=== PATIENT | male | born 1975 | race Caucasian/White ===

== ENCOUNTER 2021-08-13 11:46 | Emergency (ER) | payer OTHER, SELFPAY ==
--- NOTE | ~2021-08-13 | XR_ITS ---
EXAMINATION: XR chest 2V DATE: 08/13/2021 12:25 INDICATION: Left-sided chest pain. TECHNIQUE: Frontal and lateral views of the chest were obtained. COMPARISON: None. FINDINGS: The lung volumes are small. There is mild atelectasis in the lower lung zones. No pleural e ffusion or pneumothorax. Cardiomegaly is noted. IMPRESSION: 1. Small lung volumes with mild atelectasis in the lower lung zones. 2. Cardiomegaly. Reviewed, dictated and finalized at location A.
--- NOTE | 2021-08-13 11:49 | ECG_ITS ---
Measurements Intervals [place] Rate: 87 P: 40 SD: 175 QRS: 7 QRSD: 101 T: 50 QT: 371 QTc: 448 Interpretive Statements SINUS RHYTHM MODERATE VOLTAGE CRITERIA FOR LVH, CONSIDER NORMAL VARIANT [MEETS CRITERIA IN ONE OF: R(aVL), S(V1), R(V5), R(V5/V6)+S(V1)] ABNORMAL ECG NO PREVIOUS ECG AVAILABLE FOR COMPARISON Electronically Signed On 08-14-2021 17:55:30 CDT by Jae Lynch M.D.
[2021-08-13 12:05] VITALS: BP 164/119; PULSE 96; RESP 16; TEMP 36.6; O2SAT 96
[2021-08-13 12:10] LABS: Basophils Absolute Auto 0.1 K/mm3 (0.0-0.1); Basophils Percent Auto 0.6 % (0.2-1.2); Eosinophils Absolute Auto 0.2 K/mm3 (0-0.3); Eosinophils Percent Auto 2.4 % (0-4.4); Hematocrit 45.7 % (42.0-52.0); Hemoglobin 14.4 g/dL (14.0-18.0); Immature Granulocyte Absolute 0.01 K/mm3 (0.00-0.031); Immature Granulocyte Percent A 0.1 % (0-0.5); Lymphocytes Absolute Auto 1.11 K/mm3 (0.9-3.2); Mean Corpuscular HGB Conc 31.5 g/dl (32-36); Mean Corpuscular Hemoglobin 27.5 pg (26-34); Mean Corpuscular Volume 87.4 fl (80-100); Mean Platelet Volume 9.4 fl (7.4-10.4); Monocytes Absolute Auto 0.6 K/mm3 (0.1-0.6); Monocytes Percent Auto 7.4 % (2.6-8.5); Neutrophils Percent Auto 75.5 % (45.5-73.1); Platelet Count Result 321 k/mm3 (150-375); Red Blood Count 5.23 M/mm3 (4.6-6.20); Red Cell Distribution Width 14.9 % (11.5-14.5)
[2021-08-13 12:19] LABS: Prothrombin Time 13.1 Seconds (11.1-14.7)
[2021-08-13 12:20] LABS: Partial Thromboplastin Time 28.2 SECONDS (22.3-36.8)
[2021-08-13 12:22] LABS: Alanine Aminotransferase 35 U/L (4-50); Albumin Level 4.4 g/dL (3.5-5.1); Alkaline Phosphatase 71 U/L (38-126); Anion Gap 6 mmol/L (8-16); Aspartate Amino Transferase 35 U/L (17-59); Bilirubin,Total 0.4 mg/dL (0.2-1.3); Blood Urea Nitrogen 16 mg/dL (9-20); Calcium 8.7 mg/dL (8.4-10.2); Carbon Dioxide 29 mmol/L (22-30); Chloride 102 mmol/L (98-107); Estimated CRCL calculation 145 ml/min; Estimated Glomerular Filt Rate > 60; Glucose 134 mg/dL (65-110); Lipase 89 U/L (23-300); Potassium 3.7 mmol/L (3.4-5.0); Sodium 137 mmol/L (137-145)
[2021-08-13 14:57] VITALS: PULSE 70
[2021-08-13 15:39] LABS: Troponin I 0.017 ng/mL (0.000-0.034)
--- NOTE | 2021-08-13 15:41 | ED.CHESTPAIN ---
HPI - Chest Pain General Chief Complaint: Chest Pain Stated Complaint: chest pain Time Seen by Provider: 08/13/21 15:31 Source: patient and RN notes reviewed Mode of arrival: ambulatory Limitations: no limitations History of Present Illness HPI narrative: This is a 45 year old male with history of obesity, angina, hypertension and anxiety who presents for evaluation of chest pain. [place] in [place] stressful conversation. He developed nonradiating sharp left anterior chest pain. He denies associated nausea, vomiting cough, sob, or diaphoresis. He took his home nitroglycerin and he was given aspirin 324 mg with morphine by EMS. He states his chest pain has completely resolved. He states he has had extensive cardiac evaluation with EKG, echo and stress test. He denies having catheterization or being told he needs to have one. His sales development representative is Yanci Hickman. Related Data Home Medications Medication Instructions Recorded Confirmed Adult Aspirin EC Low Strength 08/13/21 08/13/21 albuterol 08/13/21 lisinopril-hydrochlorothiazide 08/13/21 metoprolol succinate 08/13/21 nitroglycerin 08/13/21 sertraline 08/13/21 Allergies Allergy/AdvReac Type Severity Reaction Status Date / Time No Known Allergies Allergy Verified 08/13/21 14:59 Review of Systems Review of Systems: All systems reviewed & are unremarkable except as noted in HPI and below PMFSH Past Medical History Medical History (Updated 08/13/21 @ 16:51 by Jeanette Khanna MD) Anxiety Asthma Hypertension Surgical History Surgical History (Updated 08/13/21 @ 16:49 by Jeanette Khanna MD) H/O knee surgery Social History Social History (Updated 08/13/21 @ 16:50 by Jeanette Khanna MD) Smoking status: Never smoker Alcohol intake: never Substance use: never Exam Const: General: no acute distress and alert Orientation/consciousness: patient oriented x3 Eyes: EOM: EOMs intact bilaterally Resp: Effort & Inspection: normal respiratory effort, no retractions and no use of accessory muscles Auscultation: clear to auscultation bilaterally Cardio: Rate: regular rate Rhythm: regular rhythm Heart sounds: no murmurs GI: GI Palp: Yes Soft to palpation, No Tenderness to palpation present (GI) and No Guarding due to palpation present (GI) Auscultation: normal bowel sounds Neuro: General: patient oriented x3, moves all extremities, no meningeal signs, no focal motor deficits and CN's II-XI intact bilaterally Psych: Mental Status: mental status grossly normal Affect: normal affect Course Reevaluation(s) Reevaluation #1: PAtient has no pain. His pain is atypical and he denies any stents. His heart score is low so he will be discharged to follow up with PCP and sales development representative. He is aware his BP is high and he needs to take his BP. Date: 08/13/21 Time: 16:48 Vital Signs Vital signs: Vital Signs Temperature 97.8 F 08/13/21 12:05 Pulse Rate 96 08/13/21 12:05 Respiratory Rate 16 08/13/21 12:05 Blood Pressure 164/119 H 08/13/21 12:05 Pulse Oximetry 96 08/13/21 12:05 Temperature 97.8 F 08/13/21 12:05 Pulse Rate 77 08/13/21 17:10 Respiratory Rate 22 H 08/13/21 17:10 Blood Pressure 166/86 H 08/13/21 17:10 Pulse Oximetry 97 08/13/21 17:10 MDM - Chest Pain Lab Data Attestation: I reviewed the patient's lab results. Result diagrams: 08/13/21 11:58 08/13/21 11:58 Labs: Lab Results 08/13/21 08/13/21 08/13/21 Range/Units 11:58 11:58 11:58 WBC 8.0 (4.5-10.0) K/mm3 RBC 5.23 (4.6-6.20) M/mm3 Hgb 14.4 (14.0-18.0) g/dL Hct 45.7 (42.0-52.0) % MCV 87.4 (80-100) fl MCH 27.5 (26-34) pg MCHC 31.5 L (32-36) g/dl RDW 14.9 H (11.5-14.5) % Plt Count 321 (150-375) k/mm3 MPV 9.4 (7.4-10.4) fl Immature Gran % (Auto) 0.1 (0-0.5) % Neut % (Auto) 75.5 H (45.5-73.1) % Lym
[2021-08-13 15:44] VITALS: BP 193/85; PULSE 74; RESP 23; O2SAT 96
[2021-08-13 17:10] VITALS: BP 166/86; PULSE 77; RESP 22; O2SAT 97
== END 2021-08-13 17:05 | disposition home or self-care (01) ==
PROVIDERS: Emergency Medicine; Emergency Provider General Practice
DX: R07.89 Other chest pain (principal); I10 Essential (primary) hypertension; J45.909 Unspecified asthma, uncomplicated; E66.9 Obesity, unspecified; Z68.43 Body mass index [BMI] 50.0-59.9, adult; F41.9 Anxiety disorder, unspecified; R94.31 Abnormal electrocardiogram [ECG] [EKG]
CPT/HCPCS: 36415; 71046; 80053; 83690; 84484; 85025; 85610; 85730; 93005; 99284